=== PATIENT | male | born 1960 | race Caucasian/White ===

== ENCOUNTER 2022-04-24 17:09 | Inpatient (IN) | payer SELFPAY ==
[2022-04-24] VITALS (39 sets, daily range): O2SAT 81–100
[~2022-04-24] VITALS: Ht 172.7 cm; Wt 61.2 kg
[2022-04-24 18:45] LABS: ALANINE AMINOTRANSFERASE 79 U/L (0-55); ALBUMIN 2.6 gm/dL (3.4-4.8); ALKALINE PHOSPHATASE 164 U/L (40-150); ANION GAP 12 mmol/L (7-16); AST,SGOT 174 U/L (5-34); BILIRUBIN,TOTAL 3.3 mg/dL (0.2-1.2); BLOOD UREA NITROGEN 12 mg/dL (8-26); CALCIUM 6.8 mg/dL (8.4-10.2); CARBON DIOXIDE 25 mmol/L (23-31); CHLORIDE 103 mmol/L (98-107); CREATININE, serum 0.67 mg/dL (0.72-1.25); GLUCOSE 118 mg/dL (70-99); MAGNESIUM 1.2 mg/dL (1.6-2.6); SODIUM 140 mmol/L (136-145)
[2022-04-24 18:51] LABS: ALCOHOL(ethanol),MEDICAL < 10 mg/dL (0-10); POTASSIUM 2.1 mmol/L (3.5-4.5)
[2022-04-24 19:34] LABS: COLLECTION METHOD CLEAN CATCH
[2022-04-24 19:37] LABS: URINE APPEARANCE Clear (CLEAR/HAZY); URINE COLOR Yellow (YELLOW)
[2022-04-24 19:38] LABS: PH 8.5 (5.0-8.5); URINE GLUCOSE Negative (NEGATIVE); URINE PROTEIN(semi-quant) TRACE (NEGATIVE)
[2022-04-24 19:39] LABS: URINE BLOOD TRACE-INTACT (NEGATIVE); URINE KETONE Negative (NEGATIVE); URINE NITRATE Negative (NEGATIVE)
[2022-04-24 19:39] LABS: BASO % 0.2 % (0.0-2.0); GRAN # 5.1 K/mm3 (1.4-6.5); GRAN % 81.4 % (42.2-75.2); HEMOGLOBIN 13.5 g/dl (13.5-18.0); LYMPH # 0.5 K/mm3 (1.2-3.4); MEAN CELL VOLUME 101 fl (80.0-100.0); MEAN CORPUSCULAR HEMOGLOBIN 37 pg (27-31); MEAN CORPUSCULAR HGB CONC 37 g/dl (33.0-37.0); MEAN PLATELET VOLUME 11.7 fl (7.4-10.4); MONO # 0.6 K/mm3 (0.1-0.6); MONO % 10.1 % (1.7-9.3); PLATELET COUNT 77 K/mm3 (130-400); RED BLOOD COUNT 3.64 M/mm3 (4.20-5.60); REDCELL DISTRIBUTION WIDTH-CV 12.1 % (11.5-14.5)
[2022-04-24 19:40] LABS: MUCOUS Present (NOT PRESENT); SQUAMOUS EPITHELIAL None Seen /hpf (0-10); URINE BACTERIA None Seen /hpf (NONE SEEN); URINE RBC 0-2 /hpf (0-2)
[2022-04-24 20:00] LABS: HEMATOCRIT 36.9 % (42.0-52.0)
[2022-04-24 22:56] LABS: PROTHROMBIN TIME 11.5 SECONDS (9.7-12.8)
--- NOTE | 2022-04-24 23:19 | NUR ---
PT RECEIVED FROM ED. PT CONFUSED AND DISORIENTED, UNABLE TO FOLLOW COMMANDS OR ANSWER QUESTIONS. PT AGGITATED AND PULLING AT IV LINES. SOFT MITS PLACED ON PT FOR PT SAFETY. SEIZURE PROCAUTIONS IN PLACE FOR PT SAFETY. PT WITH GENERALIZED SCATTERED BRUISING IN DIFFERENT STAGES OF HEALING, SKIN TEAR TO LT ANTERIOR ANKLE, RT SHOULDER WITH DIME SIZED LESION. PT UNDER WEIGHT. LUNG SOUNDS CLEAR ALL MANZANO.
--- NOTE | 2022-04-24 23:25 | NUR ---
PT RECEIVED FROM ED. PT DISORIENTED AND PULLING AT LINES. UNABLE TO ANSWER QUESTIONS OR FOLLOW COMMANDS. ABLE TO GET PT SETTLED AND RESTING IN BED. PT'S BELONGINGS BAG CONTAINS SHOES, SOCKS, PANTS, BELT, UNDERWEAR AND SHIRT. NO WALLET, MONEY, ID'S, CELL PHONE OR JEWELERY PRESENT WITH BELONGINGS. UNABLE TO DO COVID SCREENING, SI SCREENING, RX REQUISITION, VACCINE HX, RECENT TRAVEL, VIOLENCE AGGRESSION ASSESSMENT OR DPOA APART OF ADMISSION ASSESSMENT FORM.
[2022-04-25] VITALS (1344 sets, daily range): BP systolic 85–134; BP diastolic 56–85; PULSE 45–74; TEMP 97.3–98.8; O2SAT 77–100
[2022-04-25 02:16] LABS: TRICYCLIC ANTIDEPRESS URINE NEGATIVE
[2022-04-25 05:54] LABS: BASO % 0.3 % (0.0-2.0); EOS % 0.3 % (0.0-4.0); GRAN # 4.6 K/mm3 (1.4-6.5); GRAN % 71.2 % (42.2-75.2); HEMOGLOBIN 12.6 g/dl (13.5-18.0); LYMPH # 1.1 K/mm3 (1.2-3.4); LYMPH % 16.5 % (20.0-51.0); MEAN CELL VOLUME 103 fl (80.0-100.0); MEAN CORPUSCULAR HEMOGLOBIN 36 pg (27-31); MEAN CORPUSCULAR HGB CONC 35 g/dl (33.0-37.0); MEAN PLATELET VOLUME 10.9 fl (7.4-10.4); MONO # 0.7 K/mm3 (0.1-0.6); MONO % 11.4 % (1.7-9.3); PLATELET COUNT 74 K/mm3 (130-400); RED BLOOD COUNT 3.46 M/mm3 (4.20-5.60); REDCELL DISTRIBUTION WIDTH-CV 12.3 % (11.5-14.5)
[2022-04-25 05:57] LABS: HEMATOCRIT 35.7 % (42.0-52.0)
[2022-04-25 06:10] LABS: ALBUMIN 2.9 gm/dL (3.4-4.8); BILIRUBIN,TOTAL 3.2 mg/dL (0.2-1.2); CALCIUM 7.7 mg/dL (8.4-10.2); CREATININE, serum 0.72 mg/dL (0.72-1.25); MAGNESIUM 1.9 mg/dL (1.6-2.6); TOTAL PROTEIN 5.9 gm/dL (6.2-8.1)
[2022-04-25 06:30] LABS: POTASSIUM 2.9 mmol/L (3.5-4.5)
--- NOTE | 2022-04-25 08:00 | NUR ---
PT WOKE UP AND ATTEMPTED TO GET OUT OF BED. PT STATES HE NEEDS TO VOID. THIS NURSE ASSISTED PT WITH URINAL. PT'S LINENS SATURATED WITH URINE. LINENS CHANGED AND PT CLEANED UP. GROIN NOTED TO BE EXCORIATED FROM INCONTINENCE; BARRIER CREAM APPLIED. PT SOMEONE CONFUSED. UNAWARE OF HIS CURRENT LOCATION AND SOMEWHAT IMPULSIVE WITH MOVEMENTS. PRECEDEX DECREASED DUE TO BRADYCARDIA. PT ASSISTED BACK INTO BED. LIES SUPINE WITH HOB ELEVATED. WARM BLANKETS PROVIDED.
--- NOTE | 2022-04-25 16:25 | NUR ---
demurrage worker contacted patient's neighbor and friend, Zuri Deal as he is listed as a contact for patient. Patient is not waking up at this time. Zuri stated that patient lives alone in a trailer home and was fired from his job on March 29. Zuri states patient is drinking in excess and has lost a lot of weight. Zuri and patient's sister help patient by providing food and supplies. Zuri states that patient is a hoarder and his home is difficult to get around in.
[2022-04-26] VITALS (1005 sets, daily range): BP systolic 104–138; BP diastolic 64–103; PULSE 69–99; TEMP 97.8–99; O2SAT 60–100
[2022-04-26 06:29] LABS: BASO # 0.1 K/mm3 (0.0-0.2); BASO % 0.7 % (0.0-2.0); EOS # 0.2 K/mm3 (0.0-0.7); EOS % 2.2 % (0.0-4.0); HEMOGLOBIN 12.7 g/dl (13.5-18.0); LYMPH % 14.2 % (20.0-51.0); MEAN CELL VOLUME 103 fl (80.0-100.0); MEAN CORPUSCULAR HEMOGLOBIN 37 pg (27-31); MEAN CORPUSCULAR HGB CONC 36 g/dl (33.0-37.0); MEAN PLATELET VOLUME 11.6 fl (7.4-10.4); MONO # 0.7 K/mm3 (0.1-0.6); MONO % 9.6 % (1.7-9.3); PLATELET COUNT 91 K/mm3 (130-400); RED BLOOD COUNT 3.42 M/mm3 (4.20-5.60)
[2022-04-26 06:32] LABS: HEMATOCRIT 35.3 % (42.0-52.0)
[2022-04-26 06:44] LABS: BILIRUBIN,TOTAL 3.6 mg/dL (0.2-1.2); CALCIUM 8.2 mg/dL (8.4-10.2); CREATININE, serum 0.62 mg/dL (0.72-1.25); MAGNESIUM 1.6 mg/dL (1.6-2.6); POTASSIUM 3.7 mmol/L (3.5-4.5); TOTAL PROTEIN 5.7 gm/dL (6.2-8.1)
--- NOTE | 2022-04-26 07:49 | NUR ---
oil field worker requested Regine, financial counselor, meet with patient and begin disability and medication application.
--- NOTE | 2022-04-26 10:24 | NUR ---
BEDSIDE REPORT RECEIVED FROM LUIS ALFREDO RENTERIA. PT IS RESTING IN BED AT THIS TIME. SEIZURE PRECAUTIONS AND BED ALARM IN PLACE. CALL LIGHT IN REACH.
[2022-04-27] VITALS (981 sets, daily range): BP systolic 90–128; BP diastolic 61–93; PULSE 65–103; TEMP 98–98.9; O2SAT 31–100
--- NOTE | 2022-04-27 01:11 | NUR ---
PT HAS BEEN SLEEPING THIS SHIFT, PRECEDEX DRIP BEING TITRATED DOWN. VSS. EXTERNAL CATHETER IN PLACE, WORKING WELL FOR PT'S INC EPISODES. WILL CONTINUE TO MONITOR.
[2022-04-27 05:38] LABS: BASO # 0.1 K/mm3 (0.0-0.2); BASO % 1.3 % (0.0-2.0); EOS # 0.2 K/mm3 (0.0-0.7); EOS % 3.8 % (0.0-4.0); GRAN # 3.2 K/mm3 (1.4-6.5); GRAN % 70.4 % (42.2-75.2); HEMOGLOBIN 12.7 g/dl (13.5-18.0); LYMPH # 0.6 K/mm3 (1.2-3.4); LYMPH % 14.3 % (20.0-51.0); MEAN CELL VOLUME 101 fl (80.0-100.0); MEAN CORPUSCULAR HEMOGLOBIN 37 pg (27-31); MEAN CORPUSCULAR HGB CONC 36 g/dl (33.0-37.0); MEAN PLATELET VOLUME 11.2 fl (7.4-10.4); MONO # 0.4 K/mm3 (0.1-0.6); MONO % 9.8 % (1.7-9.3); PLATELET COUNT 104 K/mm3 (130-400); RED BLOOD COUNT 3.48 M/mm3 (4.20-5.60); REDCELL DISTRIBUTION WIDTH-CV 11.9 % (11.5-14.5)
[2022-04-27 05:40] LABS: HEMATOCRIT 35.3 % (42.0-52.0)
[2022-04-27 06:10] LABS: ALBUMIN 2.6 gm/dL (3.4-4.8); BILIRUBIN,TOTAL 7.7 mg/dL (0.2-1.2); CALCIUM 8.3 mg/dL (8.4-10.2); CREATININE, serum 0.57 mg/dL (0.72-1.25); MAGNESIUM 1.8 mg/dL (1.6-2.6); POTASSIUM 3.6 mmol/L (3.5-4.5); TOTAL PROTEIN 5.3 gm/dL (6.2-8.1)
--- NOTE | 2022-04-27 09:23 | NUR ---
BEDSIDE REPORT RECEIVED FROM LUIS ALFREDO RENTERIA. PT IS RESTING IN BED, SEIZURE PRECAUTIONS AND BED ALARM IN PLACE FOR PT SAFETY. PT DENIES NEEDS AT THIS TIME, VSS.
--- NOTE | 2022-04-27 14:51 | NUR ---
direct support worker met with patient and patient stated he has $100,000.00 in his 401K, therefore will not qualify for medicaid.
--- NOTE | 2022-04-27 23:08 | NUR ---
PT FINISHED WITH MEAL TRY UPON ENTRANCE INTO ROOM. PT ALSO SPILLED WATER IN BED. PT GIVEN TREATMENT AND SUPPLIES TO CLEAN UP PT/SHEETS WERE OBTAINED. SHEETS AND GOWN CHANGED, PT CLEANED UP AFTER DINNER, O2 PROBE CHANGED.NO DIFFICULTIES. NO COMPLAINTS OR VOICED CONCERNS. RN AWARE OF LINEN CHANGES/GOWN CHANGES.
[2022-04-28] VITALS (245 sets, daily range): BP systolic 91–128; BP diastolic 56–87; PULSE 68–100; TEMP 97.3–99.5; O2SAT 81–100
--- NOTE | 2022-04-28 06:00 | NUR ---
REPORT CALLED TO LUIS ALFREDO PORTER ON MEDICAL FLOOR. PT TRANSFERRED TO ROOM 354 VIA WHEELCHAIR WITH ALL BELONGINGS. MET RN IN ROOM. PT TOLERATED WELL.
--- NOTE | 2022-04-28 06:10 | NUR ---
Transferred to medical floor from ICU , VSS, forgetful, oriented to person/place, bed alarm on- fall risk, close to nsg station- call light in reach, urinal at bedside, has some bruises to arms/legs, back, scabs on shoulders/legs, Tele on-NSR 88/min.
[2022-04-28 06:18] LABS: BASO # 0.1 K/mm3 (0.0-0.2); BASO % 1.3 % (0.0-2.0); EOS # 0.2 K/mm3 (0.0-0.7); EOS % 3.9 % (0.0-4.0); GRAN # 2.9 K/mm3 (1.4-6.5); GRAN % 62.9 % (42.2-75.2); HEMATOCRIT 38.1 % (42.0-52.0); HEMOGLOBIN 13.3 g/dl (13.5-18.0); LYMPH # 0.8 K/mm3 (1.2-3.4); LYMPH % 17.6 % (20.0-51.0); MEAN CORPUSCULAR HEMOGLOBIN 37 pg (27-31); MEAN CORPUSCULAR HGB CONC 35 g/dl (33.0-37.0); MEAN PLATELET VOLUME 10.9 fl (7.4-10.4); MONO # 0.6 K/mm3 (0.1-0.6); MONO % 13.9 % (1.7-9.3); PLATELET COUNT 146 K/mm3 (130-400); REDCELL DISTRIBUTION WIDTH-CV 12.3 % (11.5-14.5)
[2022-04-28 06:42] LABS: ALBUMIN 2.7 gm/dL (3.4-4.8); BILIRUBIN,TOTAL 6.7 mg/dL (0.2-1.2); CALCIUM 9.1 mg/dL (8.4-10.2); CREATININE, serum 0.66 mg/dL (0.72-1.25); MAGNESIUM 1.8 mg/dL (1.6-2.6); POTASSIUM 3.9 mmol/L (3.5-4.5); TOTAL PROTEIN 5.6 gm/dL (6.2-8.1)
[2022-04-28 06:56] LABS: MEAN CELL VOLUME 106 fl (80.0-100.0)
--- NOTE | 2022-04-28 13:00 | NUR ---
PATIENT HAD A FALL WALKING UNSUPERVISED TO THE TOILET. RN SAW THE PATIENT STANDING IN THE DOOR, BUT THE PATIENT QUICKLY LOST BALANCE AND FELL BEFORE ANYONE COULD COME TO ASSIST THE PATIENT TO THE FLOOR. PATIENT DID NOT HIT HIS HEAD, BUT DID HIT HIS BACK AGAINST THE DOOR. PATIENT VSS ARE STABLE. BP 112/77 P.75 O2 99%. RR16. TEMP WAS 99.5 WILL CONTINUE TO MONITOR FOR CHANGES. MD IS AWARE OF THE FALL.
--- NOTE | 2022-04-28 18:23 | NUR ---
PATIENT HAD A PRETTY GOOD DAY TODAY. HIS ALCOHOL WITHDRAWAL PROTOL SCORES STAYED BETWEEN 1-2 TODAY. PATIENT HAD A FALL AT 1300, NO SIGNIFICANT INJURIES. EVENT REPORT COMPLETED. PATIENT NEEDS TO BE REMINDED NOT TO GET OUT OF BED WITHOUT ASSISTANCE AND BEDSIDE COMMODE IS BEST FOR THIS PATIENT.
--- NOTE | 2022-04-28 20:00 | NUR ---
Pt sitting up in bed, and watching TV. Alert and partially oriented. VSS. Shift assessment completed. Pt needs constant reminders regarding call light use, since he forgets his own limitations. Pt on fall risk precaution. CIWA protocol score of 1. Right upperarm PICC line CDI, and Right FA CDI. Tele on. Call light within reach.
[2022-04-29] VITALS (7 sets, daily range): BP systolic 103–120; BP diastolic 53–79; PULSE 82–99; TEMP 97.6–99.5
[2022-04-29 06:25] LABS: HEMOGLOBIN 12.8 g/dl (13.5-18.0); MEAN CELL VOLUME 102 fl (80.0-100.0); MEAN CORPUSCULAR HEMOGLOBIN 36 pg (27-31); MEAN CORPUSCULAR HGB CONC 36 g/dl (33.0-37.0); MEAN PLATELET VOLUME 11.1 fl (7.4-10.4); PLATELET COUNT 175 K/mm3 (130-400); RED BLOOD COUNT 3.53 M/mm3 (4.20-5.60); REDCELL DISTRIBUTION WIDTH-CV 12.8 % (11.5-14.5)
[2022-04-29 06:31] LABS: HEMATOCRIT 36.1 % (42.0-52.0)
[2022-04-29 06:48] LABS: ALBUMIN 2.6 gm/dL (3.4-4.8); CREATININE, serum 0.65 mg/dL (0.72-1.25); MAGNESIUM 1.5 mg/dL (1.6-2.6); POTASSIUM 3.4 mmol/L (3.5-4.5); TOTAL PROTEIN 5.9 gm/dL (6.2-8.1)
[2022-04-29 07:17] LABS: BAND 2 % (0-10); EOSINOPHIL 3 % (0-4); LYMPHOCYTE 23 % (20.0-51.0); NEUTROPHILS 56 % (42.0-75.2); PLATELET ESTIMATE NORMAL (NORMAL)
--- NOTE | 2022-04-29 07:27 | NUR ---
Pt had intervals of sleep. Keeps forgetting limitations and tries to stand up from bed without assistance. Gait is still unstable. Urine dark yellow and clear. CIWA protocol score of 1 all night. All medications administered per emar. During the previous evening pt had a visitor, he stated it was his sister Judith, who brought a dog, which she said it was a service dog. Left the Unit alone, leaving the dog with the pt. She came back after an hour approximately, Then left the pt room with the dog. No other needs or concerns are expressed by the pt at this moment. Call light within reach.
--- NOTE | 2022-04-29 18:17 | NUR ---
Patient had an uneventful shift. Rested most of it. Denied pain/nausea/shortness of breath. VS remain stable. Scoring 1 on detox protocol. Denies current needs. Call lightin reach. WIll monitor
--- NOTE | 2022-04-29 20:05 | NUR ---
Tx given via mask, tolerated well. Pt on room air before and after tx.
--- NOTE | 2022-04-29 20:30 | NUR ---
Pt looks more alert and oriented. More coordinated and steady on his feet. Answer questions better than previous nights. Shift assessment completed. Pt verbalized feeling lower back pain due to spending most of the time on bed. He requested a pain med. Provider notified. CIWA score of 1 during this time. Pt continue getting encouraged to use call light before going to the restroom. Pt uses walker to move. PICC line CDI on Right UA. Call light within reach.
[2022-04-30 04:32] VITALS: BP 104/73; PULSE 62; TEMP 98.5
[2022-04-30 06:00] LABS: HEMOGLOBIN 11.8 g/dl (13.5-18.0); MEAN CELL VOLUME 104 fl (80.0-100.0); MEAN CORPUSCULAR HEMOGLOBIN 37 pg (27-31); MEAN CORPUSCULAR HGB CONC 35 g/dl (33.0-37.0); MEAN PLATELET VOLUME 11.1 fl (7.4-10.4); PLATELET COUNT 245 K/mm3 (130-400); RED BLOOD COUNT 3.23 M/mm3 (4.20-5.60)
[2022-04-30 06:17] LABS: HEMATOCRIT 33.7 % (42.0-52.0)
[2022-04-30 06:23] LABS: ALBUMIN 2.4 gm/dL (3.4-4.8); BILIRUBIN,TOTAL 2.4 mg/dL (0.2-1.2); CALCIUM 9.1 mg/dL (8.4-10.2); CREATININE, serum 0.73 mg/dL (0.72-1.25); MAGNESIUM 1.4 mg/dL (1.6-2.6); TOTAL PROTEIN 5.7 gm/dL (6.2-8.1)
--- NOTE | 2022-04-30 06:29 | NUR ---
Pt had an uneventful night. Last CIWA score of 0, no Ativan was administrated. Pt use walker to go to the restroom. Pt didn't express other needs or concerns besides lower back pain during the past evening. PICC MIGUEL CDI, LFA INT CDI. Call light within reach.
[2022-04-30 06:42] LABS: BAND 9 % (0-10); EOSINOPHIL 6 % (0-4); LYMPHOCYTE 24 % (20.0-51.0); NEUTROPHILS 40 % (42.0-75.2)
[2022-04-30 06:43] LABS: PLATELET ESTIMATE NORMAL (NORMAL)
[2022-04-30 08:01] VITALS: BP 111/41; PULSE 97; TEMP 98.6
[2022-04-30 11:41] VITALS: BP 102/62; PULSE 64; TEMP 98.6
--- NOTE | 2022-04-30 12:09 | NUR ---
farmworker egg producing farm met with patient to discuss therapy recommendation's of post acute rehab. Patient reports that he has no concerns with returning home and does not feel as if he needs for PT/OT. 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 Patient denies offer for etho treatment and does not feel as if his etho use is a problem for him. He denies any etho rehab treatment in the past. Patient reports that his weight loss was contributed to having all of his teeth pull and had to heal before he got dentures. He verbalizes that he has access to food. States that he feels like he is getting restful sleep at home. When asked what his plan is after discharge and if he is going to look for another job he states "no, i'm just going to retire". SW educated and offered resource to the [facility] for assistance through the intermediate/Medicare process. Patient deies offer stating his sister can help him. Patient again states he does have a substantial 401K, but is not planning to pull it out. Patient reports that his sister, Judith Parnell is planning on moving in with him. Care team updates on the above.
[2022-04-30] MEDS ORDERED: FOLIC ACID 11 MG/TA1 PO (12:41)
[2022-04-30] MEDS ORDERED: THIAMINE 1100 MG/TAB PO (12:41)
[2022-04-30] MEDS ORDERED: DUO-KAPS1 CAP PO (12:42)
[2022-04-30] MEDS ORDERED: WALKER MC (15:08)
--- NOTE | 2022-04-30 15:33 | NUR ---
organic lab worker notified that patient is needing a FWW for home. Patients signed order and clinical information faxed to [facility]. SW notified by patient's RN that the patient's sister called stating that he would not be able to return home, however the patient is A&ox4 and has declined all services/recommendations offered to him surrounding therapy. Patient is observed calling his neighbor Migue several times for a ride home and has been unsuccessful. SW provided transportation voucher for the patient to take him to [facility] to bead picker his walker and then to transport the patient home.
--- NOTE | 2022-04-30 15:35 | NUR ---
PATIENT RECEIVED DISCHARGE INFORMATION, INCLUDING MEDICATIONS AND FOLLOW UP APPOINTMENTS. ALL BELONGINGS WERE PACKED UP, AND PATIENT DEPARTED WITH INDUSTRIAL MAINTENANCE MECHANIC TO [facility] VIA VOUCHER SERVICE.
--- NOTE | 2022-04-30 16:03 | NUR ---
APS reports filed due to patient declining all recommendations and has a need for resources. C#[id number]
--- NOTE | 2022-04-30 16:48 | NUR ---
Judith-patients sister-called after patient was discharged with questions about why he was sent home. Sister is upset that he was put in a cab and that she did not get to come up to talk to staff before hand. Patient was adamant that he did not want to accept treatment and that he wanted to be discharged, he also stated that he did not want to have a conference with his sister. Patient stated Judith is demanding he stay and refusing to pick him up. Judith states that patient has no food, no car and spends all his money on alcohol. This nurse repeated several times that patient has discharged and is no longer a patient here.
== END 2022-04-30 15:35 | disposition home or self-care (01) | DRG 897 ==
LOC: COL.ER 17:09 → MEDICAL 20:42 → COL.ER 20:42 → ICU 20:42 → MEDICAL 04-28 07:30
PROVIDERS: Hospitalist; Personal Emergency Response Attendant; Physician Assistant; Student in an Organized Health Care Education/Training Program; ADMIT Internal Medicine
PROC: 02HV33Z Insertion of Infusion Device into Superior Vena Cava, Percutaneous Approach (ICD-10-PCS; principal; 2022-04-25)
DX: F10.139 Alcohol abuse with withdrawal, unspecified (principal); E87.2 Acidosis; G40.509 Epileptic seizures related to external causes, not intractable, without status epilepticus; E87.6 Hypokalemia; D69.6 Thrombocytopenia, unspecified; I10 Essential (primary) hypertension; F17.210 Nicotine dependence, cigarettes, uncomplicated; E83.42 Hypomagnesemia; R62.7 Adult failure to thrive; S40.212A Abrasion of left shoulder, initial encounter; F12.10 Cannabis abuse, uncomplicated; K80.70 Calculus of gallbladder and bile duct without cholecystitis without obstruction; K70.10 Alcoholic hepatitis without ascites; S05.12XA Contusion of eyeball and orbital tissues, left eye, initial encounter; J32.1 Chronic frontal sinusitis; J32.2 Chronic ethmoidal sinusitis; G93.89 Other specified disorders of brain; Z91.81 History of falling
CPT/HCPCS: C1751; C9113; J2060; J2405; J2550; J3411; J3475; J3480; J7030; J7120